=== PATIENT | female | born 1985 | race American Indian/Alaskan Native ===

== ENCOUNTER 2018-08-26 13:10 | Emergency (ER) | payer MEDICAID ==
--- NOTE | 2018-08-26 13:40 | Emergency Department Report ---
Chief Complaint: Medical Clearance Stated Complaint: ABD CRAMPING/SICK Time Seen by Provider: 08/26/18 13:38 - HPI History of Present Illness: abd pain no vag bleeding currently preg found out preg 3 w ago has gotten depo 2017 had twins and cycle the entire time lmp 06/20 G3 has seen no ob told she could not hold kids rx none mse completed MSE screening note: Focused history and physical exam performed. Due to findings the following was ordered: ED Disposition for MSE Condition: Stable
[2018-08-26 13:41] VITALS: BP 126/75
[2018-08-26 14:30] LABS: Hematocrit 35.1 % (30.3-42.9); Hemoglobin 11.5 gm/dl (10.1-14.3); Mean Corpuscular HGB Conc 33 % (30-34); Mean Corpuscular Volume 87 fl (79-97); Platelet Count 309 K/mm3 (140-440); Red Blood Count 4.02 M/mm3 (3.65-5.03); Red Cell Distribution Width 15.6 % (13.2-15.2)
[2018-08-26 14:47] LABS: Bacteria,Urine 1+ /HPF (Negative); Bilirubin,Urine NEG (Negative); Blood,Urine NEG (Negative); Color,Urine Amber (Yellow); Hyaline Casts,Urine 1 /LPF; Mucus,Urine 3+ /HPF; Protein,Urine <15 mg/dL mg/dL (Negative)
[2018-08-26 14:51] LABS: BUN/Creatinine Ratio 13; Blood Urea Nitrogen 8 mg/dL (7-17); Hemolysis Index 2
[2018-08-26 14:56] LABS: HCG Qualitative,Urine Positive (Negative)
== END 2018-08-26 16:20 | disposition left against medical advice (07) ==
LOC: ED 13:10
DX: O26.891 Other specified pregnancy related conditions, first trimester (principal); R10.9 Unspecified abdominal pain; Z3A.09 9 weeks gestation of pregnancy
CPT/HCPCS: 36415; 80048; 81001; 81025; 84702; 85027; 86900; 86901; 99283